=== PATIENT | female | born 1980 | race Two or more races ===

== ENCOUNTER 2018-07-31 17:37 | Emergency (ER) | payer MEDICAID ==
[~2018-07-31] VITALS: Ht 157.5 cm; Wt 66.7 kg
[2018-07-31 18:41] LABS: UA SPECIFIC GRAVITY <=1.005 (1.005-1.035); microscopic required? YES; urine erythrocyte TRACE (NEGATIVE)
[2018-07-31 18:42] LABS: BASOPHIL % 0.6 % (0-2); PLATELET COUNT 276 x10^3mcL (130-400); RED CELL DISTRIBUTION WIDTH 13.2 % (11.5-14.5)
[2018-07-31 18:52] LABS: CALCIUM 8.4 mg/dL (8.5-10.1); CARBON DIOXIDE 29.5 mmol/L (21-32); CHLORIDE SERUM 104 mmol/L (98-107); CREATININE SERUM 0.6 mg/dL (0.6-1.0); GFR1 > 60 mL/min; GLUCOSE SERUM 104 mg/dL (74-106); POTASSIUM SERUM 3.5 mmol/L (3.5-5.1); SODIUM SERUM 141 mmol/L (136-145)
[2018-07-31 18:57] LABS: ALBUMIN 3.6 g/dL (3.4-5.0); ALKALINE PHOSPHATASE 78 U/L (46-116); ALT/SGPT 26 U/L (14-59); AST/SGOT 15 U/L (15-37); BILIRUBIN TOTAL 0.2 mg/dL (0.20-1.00); TOTAL PROTEIN, SERUM 7.2 g/dL (6.4-8.2)
[2018-07-31 20:49] VITALS: BP 114/78
== END 2018-07-31 20:49 | disposition home or self-care (01) ==
LOC: ED 17:37
PROVIDERS: Emergency Medicine
DX: N94.89 Other specified conditions associated with female genital organs and menstrual cycle (principal)
CPT/HCPCS: J1885; J7030

== ENCOUNTER 2019-06-28 09:40 | Emergency (ER) | payer MEDICAID ==
[~2019-06-28] VITALS: Ht 157.5 cm; Wt 63.5 kg
[2019-06-28 09:52] VITALS: Ht 157.5 cm; Wt 63.5 kg
[2019-06-28 11:45] VITALS: BP 115/70
== END 2019-06-28 22:45 | disposition home or self-care (01) ==
LOC: ED 09:40
DX: J10.1 Influenza due to other identified influenza virus with other respiratory manifestations (principal)
CPT/HCPCS: 87804; J1100; J1885; Q0162